=== PATIENT | female | born 1990 ===

== ENCOUNTER → 2020-05-14 | Outpatient (CLI) | payer BC ==
[~2020-05-14] MED LIST: PRENATAL TABLET PO
== END | disposition still patient (30) ==
LOC: ZCOL.LAB 08:00
DX: Z20.822 Contact with and (suspected) exposure to COVID-19 (principal)

== ENCOUNTER 2020-05-18 14:43 | Inpatient (IN) | payer BC ==
[~2020-05-18] VITALS: Ht 162.6 cm; Wt 120.0 kg
[2020-05-19] VITALS (63 sets, daily range): BP systolic 101–177; BP diastolic 53–88; PULSE 81–122; TEMP 98–99.3
--- NOTE | 2020-05-19 07:25 | NUR ---
0725- 41.0, G2L0 arrives on unit for IOL. Ambulatory to LDR5 with spouse. Oriented to room and plan of care. Changes into clean gown. Wedge left. 0735- EFM explained and placed. VS obtained, assessment completed. Patient reports normal movement. Denies regular contractions, leaking of fluid, or vaginal bleeding. Consent forms expained and signed. 0745- IV started to LW. Routine labs obtained. LR infusing. 0755- SVE by this RN /-3. BOWI. 0800- Pitocin started at 2mu per protocol. Plan of care reviewed with patient and spouse who verbalize understanding. Denies questions or needs at this time. Resting with call light within reach.
[2020-05-19] MEDS ORDERED: PRENATAL TABLET PO (08:10)
[2020-05-19 08:14] LABS: BASO % 0.3 % (0.0-2.0); EOS # 0.1 (0.0-0.7); EOS % 0.6 % (0-4.0); GRAN # 9.1 (1.4-6.5); GRAN % 74.4 % (42.2-75.2); HEMOGLOBIN 12.4 g/dl (12.5-16.0); LYMPH % 16.2 % (20.0-51.0); MEAN CELL VOLUME 90 fl (80.0-100.0); MEAN CORPUSCULAR HEMOGLOBIN 30 pg (27.0-31.0); MEAN CORPUSCULAR HGB CONC 34 g/dl (33.0-37.0); MEAN PLATELET VOLUME 11.1 fl (7.4-10.4); MONO # 0.9 (0.1-0.6); MONO % 7.3 % (1.7-9.3); PLATELET COUNT 206 K/mm3 (130-400); RED BLOOD COUNT 4.09 M/mm3 (4.10-5.30); REDCELL DISTRIBUTION WIDTH-CV 13.4 % (11.5-14.5)
[2020-05-19 08:15] LABS: HEMATOCRIT 36.6 % (37.0-47.0)
--- NOTE | 2020-05-19 10:28 | NUR ---
Bilateral side lying hip release. Difficult to trace FHR due to maternal position. RN remains at bedside adj. EFM. Patient right lateral with left leg in stirrups. Dr. Vicente at bedside and reviews plan of care with patient and spouse who verbalize understanding. Denies questions or needs at this time.
--- NOTE | 2020-05-19 11:08 | NUR ---
1108- Patient hands knees for pt comfort. RN remains at bedside adj. EFM. Difficult to trace due to maternal position. 1118- Patient wedge left. RN remains at bedside. EFM adjusted. FHR tracing. Patient requesting epidural. Chayo Bustillo CRNA notified. 1128- Patient to edge of bed for epidural placement. Chayo Bustillo CRNA at bedside. FHR tracing intermittently due to maternal position and habitus. Pitocin paused. RN remains at bedside adj. EFM. 1137- Epidural placed and single shot at this time by Chayo Bustillo CRNA. 1145- Patient wedge left. EFM adjusted and FHR tracing. Pitocin resumed at 16mu. Plan of care and safety precautions reviewed with patient and family who verbalize understanding. Denies questions or needs at this time. Resting with call light within reach. See anesthesia record.
--- NOTE | 2020-05-19 15:15 | NUR ---
Patient reports sharp pain in lower abdomen. Pushes epidural bolus button. Repositioned high fowlers, wedge left, with peanut ball under heels. Plan of care reviewed with patient who verbalizes understanding.
--- NOTE | 2020-05-19 15:55 | NUR ---
Patient with no relief form patient dose epidural bolus. Chayo Bustillo [employer] at bedside and doses epidural. See anesthesia record.
--- NOTE | 2020-05-19 16:50 | NUR ---
1650- Dr. Vicente at bedside. Reviews plan of care with patient and family who verbalize understanding. SVE by provider /. Bloody show noted with exam. 172-Dr. Vicente remains on unit and reviews strips. At bedside. Patient reports increased back pain. SVE by provider . Repositioned in bed. Chayo Bustillo MATERIALS HANDLING COORDINATOR at bedside to dose epidural. 173- Maternal HR traing. RN at bedside adjusting EFM. 1750- Dr. Vicente at bedside. SVE . Patient reports pain/pressure is better in between ctx. Patient right lateral, with left leg in stirrups. Warm blanket provided. Plan of care reviewed. Patient verbalizes understanding. Denies questions or needs at this time.
--- NOTE | 2020-05-19 18:22 | NUR ---
1809 - Dr. Vicente at bedside. SVE /+1. Pt visibly very uncomfortable and appears epidural is not working. JAKE Livingston upated. 1814 - JAKE Livingston at bedside to replace epidural. Pt repositioned to sitting on edge of bed. Replacement explained, pt verbalized understanding. 1821 - Test dose by JAKE Livingston, pt denies any adverse reactions. 1824 - Pt positioned to high fowlers for comfort. Safety precautions reviewed, bed in low and locked position, call light within reach. See Anesthesia record.
--- NOTE | 2020-05-19 18:35 | NUR ---
183 - SVE 9/100/+1. BP 171/118 in right upper arm using blue cuff. Pt comfortable with epidural and is not feeling pain. Denies headache, blurry vision, or RUQ pain. 184 - BP 204/150 in left upper arm using blue cuff. Pt continues to be comfortable with epidural and denies headaches, blurry vision, or RUQ pain. 1847 - BP 210/140 in right lower arm using blue cuff. 1849 - Rolling dynamap brought to bedside BP 136/119 in right lower arm using blue cuff. Dr. Vicente on unit and updated on BPs. Will try larger cuff. Pt has not had problems with BP reading since admission. Ramón Bustillo CRNA also notified. 1854 - BP 190/150 in left upper arm using maroon cuff. 1856 - BP 157/125 in left upper arm using maroon cuff on dynamap. 1904 - BP 105/70 using manual cuff in left upper arm.
--- NOTE | 2020-05-19 20:53 | NUR ---
2009 - SVE complete/+1. Pt positioned into footplates. Educated on pushing techniques, verbalized understanding. Gallardo catheter out. 2014 - Initial push at this time. Pushing well with contractions. 2029 - Pt contines to push well with contractions, Dr. Vicente called for delivery. Nursery RN updated. Room set up for delivery. 2039 - Dr. Vicente gowned and gloved at perineum. 2044 - Pt continues to push well with contactions. Pulse ox off for patient comfort, ok by Dr. Vicente. Nursery RN Faye Russo at bedside. 2052 - Spontaneous vaginal delivery of viable girl. Infant placed on mothers abdomen, care of assumed to NICOLE Longo. Cord clamped x [address] Vicente and cut by pt. Pitocin off. Cord blood obtained. 2057 - Spontaneous delivery of intact placenta. Fundal massage by Dr. Vicente, firm and down 2 from umbilicus. First degree perineal laceration repaired by Dr. Vicente. Epidural off. Pitocin restarted at 333 mu/min. 2109 - Pericare provided. New chux beneath patient. Ice pack to perineum. Pt repositioned in bed for comfort. recovery started. See physician delivery note.
--- NOTE | 2020-05-19 23:45 | NUR ---
Pt able to lift and hold each leg off of bed for 5 seconds. Pt repositioned to sitting on edge of bed. Epidural catheter removed. Tip smooth, blue, and intact. Pt able to ambulate to bathroom with standby assistance. Unable to void at this time. Pericare explained and provided. Mesh panties and peripad applied. Clean gown on. Pt transferred to room 214 with and belongings.
[2020-05-20 01:00] VITALS: BP 128/82; PULSE 88; TEMP 97.9
[2020-05-20 05:00] VITALS: BP 141/69; PULSE 88; TEMP 98.6
[2020-05-20 06:30] VITALS: BP 133/80; PULSE 86; TEMP 98
--- NOTE | 2020-05-20 09:07 | NUR ---
Initial visit attempt; Truss Puller Helper left card of congratulations and God's blessings for the of their daughter and information regarding the availability of Spiritual Care at [facility].
[2020-05-20 11:00] VITALS: BP 119/64; PULSE 95; TEMP 98.4
[2020-05-20 16:24] VITALS: BP 125/72; PULSE 87; TEMP 98.9
[2020-05-21 04:00] VITALS: BP 121/77; PULSE 69; TEMP 98.8
[2020-05-21 08:29] VITALS: BP 100/62; PULSE 68; TEMP 97.4
== END 2020-05-21 13:15 | disposition home or self-care (01) | DRG 807 ==
LOC: OB 14:43 → LDR 05-19 07:21 → OB 05-19 09:12
PROVIDERS: ADMIT Student in an Organized Health Care Education/Training Program
PROC: 10E0XZZ Delivery of Products of Conception, External Approach (ICD-10-PCS; principal; 2020-05-19)
PROC: 10907ZC Drainage of Amniotic Fluid, Therapeutic from Products of Conception, Via Natural or Artificial Opening (ICD-10-PCS; 2020-05-19)
PROC: 3E033VJ Introduction of Other Hormone into Peripheral Vein, Percutaneous Approach (ICD-10-PCS; 2020-05-19)
PROC: 0HQ9XZZ Repair Perineum Skin, External Approach (ICD-10-PCS; 2020-05-19)
DX: O48.0 Post-term pregnancy (principal); Z37.0 Single live birth; Z3A.41 41 weeks gestation of pregnancy; O99.214 Obesity complicating childbirth; E66.9 Obesity, unspecified; O99.62 Diseases of the digestive system complicating childbirth; K21.9 Gastro-esophageal reflux disease without esophagitis; O70.0 First degree perineal laceration during delivery; O43.123 Velamentous insertion of umbilical cord, third trimester
CPT/HCPCS: J2400; J2405; J2590; J2795; J7120

== ENCOUNTER 2021-08-04 19:55 | Inpatient (IN) | payer BC ==
[2021-08-04] VITALS (12 sets, daily range): BP systolic 94–158; BP diastolic 52–81; PULSE 75–126
[~2021-08-04] VITALS: Ht 162.6 cm; Wt 125.5 kg
--- NOTE | 2021-08-04 20:00 | NUR ---
1999 - PATIENT AMBULATORY TO LDR2 ACCOMPANIED BY . PATIENT REPORTS INCREASING INTENSITY OF CONTRACTIONS WITH FREQUENCY OF Q3-4 MINUTES. PATIENT DENIES LEAKING OF FLUID OR BLOODY SHOW. PATIENT BREATHING THROUGH CONTRACTIONS AND UNABLE TO TALK DURING A CONTRACTION. PLAN OF CARE DISCUSSED AND QUESTIONS ANSWERED. PATIENT AGREEABLE TO PLAN. PATIENT CHANGES INTO GOWN. 2011 - PATIENT PLACED ON MONITOR. VSS. 2014 - SVE PERFORMED BY NICOLE TADEO 2019 - EFM TRACING DIFFICULT DUE TO MATERNAL POSITION WHEN COPING WITH CONTRACTIONS. EFM ADJUSTED. 2024 - DISCUSSED PATIENT WITH MD THANG. PATIENT TO ADMIT. 2034 - IV STARTED. LABS OBTAINED ORDERED. LR INITIATED. 2053 - MD THANG AT BEDSIDE. SVE PERFORMED BY CARE ONGOING.
--- NOTE | 2021-08-04 20:54 | NUR ---
2049 - Winter Carlos CRNA at bedside for epidural placement. Epidural procedure, risks, and benefits reviewed with patient, verbalized understanding. Pt positioned to sitting on edge of bed. 2053 - Single shot by JAKE Partida. Pt denies any adverse reactions. Difficulty tracing FHR due to maternal positioning. 2099 - Pt positioned to wedge left. Safety precautions reviewed. Bed in low and locked position, call light within reach. See Anesthesia record.
[2021-08-04 20:59] LABS: BASO % 0.3 % (0.0-2.0); EOS % 0.1 % (0.0-4.0); GRAN # 13.2 K/mm3 (1.4-6.5); GRAN % 83.3 % (42.2-75.2); HEMOGLOBIN 12.1 g/dl (12.5-16.0); LYMPH # 1.5 K/mm3 (1.2-3.4); LYMPH % 9.7 % (20.0-51.0); MEAN CELL VOLUME 86 fl (80.0-100.0); MEAN CORPUSCULAR HEMOGLOBIN 29 pg (27-31); MEAN CORPUSCULAR HGB CONC 34 g/dl (33.0-37.0); MEAN PLATELET VOLUME 11.4 fl (7.4-10.4); MONO # 0.9 K/mm3 (0.1-0.6); MONO % 5.8 % (1.7-9.3); PLATELET COUNT 197 K/mm3 (130-400); RED BLOOD COUNT 4.15 M/mm3 (4.10-5.30); REDCELL DISTRIBUTION WIDTH-CV 13.7 % (11.5-14.5)
[2021-08-04 21:06] LABS: HEMATOCRIT 35.8 % (37.0-47.0)
--- NOTE | 2021-08-04 22:31 | NUR ---
2231 COMPLETE AND INSTRUCTED TO PUSH WITH CONTRACTIONS. READIED FOR DELIVERY. DR DESIR NOTIFIED OF PROGRESS 2244 DEL VIABLE MALE OVER HYMENAL LAC WITH 8/9/9 APGARS. IV CONTS TO INFUSE.
[2021-08-05] VITALS (8 sets, daily range): BP systolic 92–132; BP diastolic 50–76; PULSE 74–96; TEMP 97.9–98.6
--- NOTE | 2021-08-05 00:30 | NUR ---
0030 IV TO INT. EPID CATH REMOVED. UP TO BR WITH ASSIST AND UNABLE TO VOID. PERICARE DONE. AMB TO 214 AND OTONIEL WELL.
[2021-08-05] MEDS ORDERED: IBU800 M1 PO (08:11)
--- NOTE | 2021-08-05 09:42 | NUR ---
Initial visit; Parents thanked [facility] for offering congratulations and God's blessings for the of their son. [facility] thanked family for choosing our hospital.
[2021-08-06 04:55] VITALS: BP 115/53; PULSE 75; TEMP 97.9
[2021-08-06 07:15] VITALS: BP 124/71; PULSE 71; TEMP 98.6
--- NOTE | 2021-08-06 14:53 | NUR ---
1015DISCHARGE INSTRUCTIONS REVIEWED WITH PATIENT. PATIENT VERBALIZED UNDERSTANDING. WILL NOTIFY NURSING STAFF WHEN READY TO LEAVE. 1130ALL PERSONAL BELONGINGS GATHERED FROM PATIENT ROOM. PATIENT LEFT AMBULATORY AND IN NO APPARENT DISTRESS, ACCOMPANIED BY SPOUSE AND Froylan BLACK RN.
== END 2021-08-06 11:30 | disposition home or self-care (01) | DRG 807 ==
LOC: LDRO 19:55 → OB 20:28 → LDR 20:28 → OB 08-05 00:30
PROVIDERS: ADMIT Student in an Organized Health Care Education/Training Program
PROC: 10E0XZZ Delivery of Products of Conception, External Approach (ICD-10-PCS; principal; 2021-08-04)
PROC: 10907ZC Drainage of Amniotic Fluid, Therapeutic from Products of Conception, Via Natural or Artificial Opening (ICD-10-PCS; 2021-08-04)
PROC: 0UQKXZZ Repair Hymen, External Approach (ICD-10-PCS; 2021-08-04)
PROC: 0UQMXZZ Repair Vulva, External Approach (ICD-10-PCS; 2021-08-04)
DX: O70.0 First degree perineal laceration during delivery (principal); Z37.0 Single live birth; O71.82 Other specified trauma to perineum and vulva; Z3A.40 40 weeks gestation of pregnancy
CPT/HCPCS: J2590; J7120

== ENCOUNTER 2024-01-23 00:25 | Inpatient (IN) | payer BC ==
[~2024-01-23] VITALS: Ht 165.1 cm; Wt 113.6 kg
[2024-01-23] VITALS (27 sets, daily range): BP systolic 87–143; BP diastolic 49–80; PULSE 64–109; TEMP 97.6–98.8
[~2024-01-23 00:25] MED LIST changes: +IBU800 M1 PO
--- NOTE | 2024-01-23 00:40 | NUR ---
0040 G5L2 40.2 WEEK GEST TO LR6 WITH C/O SROM AT 2250. EFM ON. SVE WITH POSITIVE AMNIOTRACE AND LEAKING CL FLUID. SVE /-2. STATES STARTED JAC SOON WATER BROKE AND THEY ARE BECOMING HARDER. ADM ASSESSMENT COMPLETED. WANTING EPID 0100 DR YAP NOTIFIED AND ORDERS RECEIVED.
[2024-01-23] MEDS ORDERED: LR 1,000 ML IV PRN (01:15)
[2024-01-23] MEDS ORDERED: LR & Oxytocin 500 ML IV SCH (01:15)
[2024-01-23] MEDS ORDERED: LR 1,000 ML IV SCH ×2 (01:15→02:00)
--- NOTE | 2024-01-23 01:20 | NUR ---
0120 SITTING ON SIDE OF BED FOR EPID PLACEMENT SEE ANESTH RECORD FOR MORE INFORMATION.
[2024-01-23 01:21] LABS: BASO % 0.3 % (0.0-2.0); EOS # 0.1 K/mm3 (0.0-0.7); EOS % 0.4 % (0.0-4.0); GRAN # 7.8 K/mm3 (1.4-6.5); GRAN % 69.8 % (42.2-75.2); HEMOGLOBIN 11.6 g/dl (12.5-16.0); LYMPH # 2.4 K/mm3 (1.2-3.4); MEAN CELL VOLUME 88 fl (80.0-100.0); MEAN CORPUSCULAR HEMOGLOBIN 30 pg (27-31); MEAN CORPUSCULAR HGB CONC 34 g/dl (33.0-37.0); MEAN PLATELET VOLUME 11.3 fl (7.4-10.4); MONO # 0.9 K/mm3 (0.1-0.6); MONO % 7.9 % (1.7-9.3); PLATELET COUNT 191 K/mm3 (130-400); RED BLOOD COUNT 3.85 M/mm3 (4.10-5.30); REDCELL DISTRIBUTION WIDTH-CV 13.3 % (11.5-14.5)
[2024-01-23] MEDS ORDERED: ROPivacaine PF 0.2% 200 ML IV ONE (01:22)
[2024-01-23] MEDS ORDERED: diphenhydrAMINE 25 MG CAP PO PRN (02:00)
[2024-01-23] MEDS ORDERED: LR 500 ML IV PRN (02:00)
[2024-01-23] MEDS ORDERED: Naloxone 0.4 MG/ML VIAL IV PRN ×2 (02:00→06:15)
[2024-01-23] MEDS ORDERED: Ondansetron 4 MG/2 ML VIAL IV PRN (02:00)
[2024-01-23] MEDS ORDERED: diphenhydrAMINE 50 MG/ML 1 ML VIAL IV PRN (02:00)
[2024-01-23] MEDS ORDERED: ePHEDrine 50 MG/10 ML VIAL IV PRN (02:00)
--- NOTE | 2024-01-23 02:00 | NUR ---
0200 PT STATES NO PAIN RELIEF ON RIGHT SIDE. SAT ON SIDE OF BED FOR EPID REPLACEMENT WITH GOOD RESULTS.
--- NOTE | 2024-01-23 02:32 | NUR ---
0110 IV STARTED. CONSENTS SIGNED.
--- NOTE | 2024-01-23 02:35 | NUR ---
0230 FEELING MUCH BETTER. MCGINNIS PLACED. SVE /-2. LIGHTS OUT TO REST.
--- NOTE | 2024-01-23 04:49 | NUR ---
0449 COMPLETE AND INSTRUCTED TO PUSH WITH ONE CONTRACTION. DR YAP NOTIFIED TO COME TO DELIVERY. INSTRUCTED TO PUSH OPEN GLOTTIS WITH CONTRACTIONS. 0502 DR YAP HERE. READIED FOR DEL. 0507 DEL VIABLE FE OVER SM LAC. APGARS . REMAINS IN LR6.
--- NOTE | 2024-01-23 05:11 | NUR ---
0511 PLACENTA DELIVERED. IV PITOCIN STARTED BUT IV SITE INFILTRATED. UNABLE TO FLUSH OR RUN IV FLUIDS. IV DCD PER DR ELIZABETH ORDER.
[2024-01-23] MEDS ORDERED: Magnes Hydrox (MOM) 80 MG/ML 30 ML CUP PO PRN (05:30)
[2024-01-23] MEDS ORDERED: Loratadine 10 MG TAB PO PRN (05:30)
--- NOTE | 2024-01-23 05:55 | NUR ---
0555 FUNDAS FIRM WITH SM VAG BLEEDING NOTED. PAD CHANGED. SITTING UP IN BED TO NURSE BABY. LEGS REMAINS HEAVY.
[2024-01-23] MEDS ORDERED: Acetaminophen 500 MG TAB PO SCH (06:15)
[2024-01-23] MEDS ORDERED: Measles/Mumps/Rubella Virus Vaccine Live w Diluent 0.5 ML VIAL SQ SCH (06:15)
[2024-01-23] MEDS ORDERED: Witch Hazel 50% Pads Bulk TUB TP PRN (06:15)
[2024-01-23] MEDS ORDERED: oxyCODONE 5 MG TAB PO PRN (06:15)
[2024-01-23] MEDS ORDERED: Ibuprofen 800 MG TAB PO SCH (06:15)
[2024-01-23] MEDS ORDERED: Tdap Vaccine 0.5 ML SYRINGE IM SCH (06:15)
[2024-01-23] MEDS ORDERED: Phenylephrine/Mineral Oil/Petrolatum 57 GM TUBE RC PRN (06:15)
[2024-01-23] MEDS ORDERED: Mag/Al Hydrox/Simeth Susp 30 ML CUP PO PRN (06:15)
--- NOTE | 2024-01-23 07:45 | NUR ---
PT UP TO RESTROOM, ABLE TO VOID. EDUCATION GIVEN REGARDING PABLO CARE, GOWN CHANGED. PT AMBULATES TO ROOM 215 IN STABLE CONDITION WITH INFANT ACCOMPANIED BY
[2024-01-23] MEDS ORDERED: Sennosides/Docusate 8.6-50 MG TAB PO SCH (08:00)
[2024-01-23] MEDS ORDERED: traZODone 50 MG TAB PO PRN (21:00)
[2024-01-24 07:00] VITALS: BP 118/66; PULSE 67; TEMP 97.9
--- NOTE | 2024-01-24 11:05 | NUR ---
Initial visit attempt; Patient resting, Portfolio Consultant left a card offering congratulations and God's blessings for the of her daughter along with th availability of Spiritual Care.
--- NOTE | 2024-01-24 12:05 | NUR ---
DISCHARGE INSTRUCTIONS REVIEWED WITH PATIENT AND SIGNIFICANT OTHER. PATIENT VERBALIZES UNDERSTANDING. PATIENT AMBULATORY OFF UNIT AT THIS TIME WITH THIS RN AND SPOUSE.
== END 2024-01-24 12:05 | disposition home or self-care (01) | DRG 807 ==
LOC: LDRO 00:25 → LDR 01:04 → OB 07:51
PROVIDERS: Obstetrics & Gynecology; ADMIT Student in an Organized Health Care Education/Training Program
PROC: 10E0XZZ Delivery of Products of Conception, External Approach (ICD-10-PCS; principal; 2024-01-23)
PROC: 0UQMXZZ Repair Vulva, External Approach (ICD-10-PCS; 2024-01-23)
DX: O48.0 Post-term pregnancy (principal); Z37.0 Single live birth; O69.81X0 Labor and delivery complicated by cord around neck, without compression, not applicable or unspecified; Z3A.40 40 weeks gestation of pregnancy; O70.0 First degree perineal laceration during delivery
CPT/HCPCS: J2590; J2795; J7120